=== PATIENT | female | born 1940 | race Caucasian/White ===

== ENCOUNTER 2024-06-02 06:18 | Day surgery (SDC) | payer OTHER, SELFPAY ==
[2024-05-19 13:43] VITALS: BMI 23.9
[2024-05-19 14:27] LABS: Hematocrit 45.3 % (37.0-47.0); Hemoglobin 14.9 g/dL (12.0-16.0); Mean Corp Hgb Conc. 32.9 g/dL (33.0-37.0); Mean Corpuscular Hgb 28.8 pg (27.0-31.0); Mean Corpuscular Volume 87.6 fL (81.0-99.0); Mean Platelet Volume 8.4 fL (7.4-10.4); Platelet Count 303 10^3/uL (130-400); Red Blood Cell Count 5.17 10^6/uL (4.20-5.40); Red Cell Dist. Width 13.2 % (11.5-14.5); White Blood Cell Count 6.1 10^3/uL (4.8-10.8)
[2024-05-19 14:37] LABS: ALT (SGPT) 26 U/L (0-35); AST (SGOT) 30 U/L (14-36); Albumin 4.4 g/dl (3.5-5.0); Alkaline Phosphatase 111 U/L (38-126); Blood Urea Nitrogen 26 mg/dl (7-17); Calcium 9.1 mg/dl (8.4-10.2); Carbon Dioxide 26 mmol/L (22-30); Chloride 100 mmol/L (98-107); Estimated Creatinine Clearance 60 ml/min; Glucose 118 mg/dl (70-99); Potassium 4.1 mmol/L (3.5-5.1); Sodium 136 mmol/L (135-145); Total Bilirubin 0.5 mg/dl (0.2-1.3); Total Protein 6.5 g/dl (6.3-8.2); eGFR > 60.00
--- NOTE | 2024-05-19 15:35 | VNURNOTE ---
Patient is scheduled for an elective L TKA on 06/02/24- she is a same day patient with Dr Moser. Spoke with patient prior to surgery. Introduced role of [facility] Liaison. Patient reports that she lives with her spouse in [facility]
community- first floor.
0 JOHN. Patient has a cane. She does not have a rolling walker. Liason notified surgical supplies sterilizer, Elinor Cabezas. Also advised patient to request at Pre Op appt on 05/26.
Patient had opposite knee done prior but was not same day surgery.
PCP is Dr Caridad Allan.
Discussed [facility] joint protocol and post surgical plans.
Reviewed that she will have VN services initially and will then start outpatient PT.
Patient is out of [facility] network. She will be set up with [facility] per [facility] joint protocol. She is setting up outpatient PT. She is deciding between PT at [facility] versus [facility]. Outpt PT date TBD.
Patient is in agreement with plan and states that her spouse will be home with her. Advised to bring RW with her day of surgery. She will obtain prior. Referral sent to [facility]- emailed to Wiley and Glenny Acharya.
Plan: [facility] per [facility] joint protocol then outpt PT TBD
[2024-05-20 08:40] LABS: Glycohemoglobin (HgbA1c) 5.5 % (4.0-5.6)
[2024-05-28 12:30] VITALS: BMI 23.9
[2024-06-02] VITALS (14 sets, daily range): BP systolic 95–141; BP diastolic 55–81; PULSE 95; O2SAT 97
[2024-06-02] MEDS: CELEBREX 200 MG PO (07:48)
[2024-06-02] MEDS: TYLENOL 650 MG PO (07:48)
[2024-06-02] MEDS: NORMOSOL-R/PLASMALYTE-A 1000 IV (08:00)
--- NOTE | 2024-06-02 09:02 | W.DS.TRANS ---
DC Summary - Home Health [facility]
-
Discharge Instructions:
Sleep Apnea Risk Low
Discharge Diagnosis/Procedures L TKA 06/02/24
Diet As tolerated
Activity With Walker
Driving Restrictions No driving
Bathing Restrictions OK to Shower
Other Services PT
Instructions:
Stand-Alone Forms: SDS Total Hip and Knee D/C
Changes to Home Medications: Yes
Discharge Medications:
DC Medications w/original date entered in [employer]
ascorbic acid (vitamin C) 500 mg tablet (Vitamin C) 500 mg PO DAILY PRN cold, if needed 06/08/22
diphenhydramine HCl 25 mg capsule (Sleep Aid (diphenhydramine)) 50 mg PO HS PRN SLEEP 06/08/22
eztiexgrsmp-ohc-sqqsgilon-hrb 149-hyalur 500 mg-500 mg-66.7 mg tablet (Aiztebmikav-Ptzbvjdplmr-PDO (with antiox)) 2 tab PO DAILY 06/08/22
melatonin 5 mg tablet 10 mg PO HS 06/08/22
multivitamin 1 tab PO DAILY 06/08/22
mupirocin 2 % topical ointment 1 applic topical BID 05/28/24
acetaminophen 500 mg tablet 1,000 mg (2 x 500 mg) PO QID pain #0 tabs 06/02/24
aspirin 325 mg tablet 325 mg PO DAILY blood clot prevention #1 tab 06/02/24
celecoxib 100 mg capsule 100 mg PO BID Anti-inflammatory #14 caps 06/02/24
dexamethasone 4 mg tablet 4 mg PO BID inflammation #6 tabs 06/02/24
docusate sodium 100 mg capsule (Colace) 100 mg PO BID stool softner #1 cap 06/02/24
mupirocin 2 % topical ointment 1 applic topical BID infection prevention #1 tube 06/02/24
ondansetron 4 mg disintegrating tablet 4 mg PO Q6H PRN n/v #20 tabs 06/02/24
oxycodone 5 mg tablet 5 mg PO Q6H PRN 1 tab moderate pain, 2 tabs severe pain #30 tabs 06/02/24
sennosides 8.6 mg tablet (Senokot) 17.2 mg (2 x 8.6 mg) PO BID laxative #2 tabs 06/02/24
Home Medication Changes
acetaminophen 500 mg tablet 1,000 mg (2 x 500 mg) PO QID pain #0 tabs 06/02/24
aspirin 325 mg tablet 325 mg PO DAILY blood clot prevention #1 tab 06/02/24
celecoxib 100 mg capsule 100 mg PO BID Anti-inflammatory #14 caps 06/02/24
dexamethasone 4 mg tablet 4 mg PO BID inflammation #6 tabs 06/02/24
docusate sodium 100 mg capsule (Colace) 100 mg PO BID stool softner #1 cap 06/02/24
mupirocin 2 % topical ointment 1 applic topical BID infection prevention #1 tube 06/02/24
ondansetron 4 mg disintegrating tablet 4 mg PO Q6H PRN n/v #20 tabs 06/02/24
oxycodone 5 mg tablet 5 mg PO Q6H PRN 1 tab moderate pain, 2 tabs severe pain #30 tabs 06/02/24
sennosides 8.6 mg tablet (Senokot) 17.2 mg (2 x 8.6 mg) PO BID laxative #2 tabs 06/02/24
Pending Results: No
[2024-06-02] MEDS: BENADRYL 12.5 MG IV (12:11)
[2024-06-02] MEDS: ANCEF 5 IV (13:35)
== END 2024-06-02 14:40 | disposition home or self-care (01) ==
LOC: SDS 06:18
PROVIDERS: ATTENDING PHYSICIAN Specialist; FAMILY PHYSICIAN Internal Medicine
PROC: 0SRD0J9 Replacement of Left Knee Joint with Synthetic Substitute, Cemented, Open Approach (ICD-10-PCS; 2024-06-02)
DX: M17.12 Unilateral primary osteoarthritis, left knee (principal); Z85.3 Personal history of malignant neoplasm of breast
CPT/HCPCS: 27447; 36415; 73560; 80053; 83036; 85027; 87070; 93005; 97162; 97530; C1713; C1776